=== PATIENT | male | born 1930 | race Caucasian/White ===

== ENCOUNTER 2017-03-22 09:42 | Inpatient (IN) | payer MEDICARE ==
[2017-03-21 12:41] VITALS: BMI 31.1
[2017-03-22 11:14] LABS: INR 1.2; PROTHROMBIN TIME 13.9 SECONDS (9.7-12.2)
[2017-03-22] MEDS ORDERED: Ciprofloxacin 400mg/200ml D5W 400 MG/200 ML BAG IVPB ONE ×2 (11:51→23:00)
[2017-03-22] MEDS ORDERED: Lidocaine 2% Jelly (Uro-Jet) ONE (11:52)
[2017-03-22] MEDS ORDERED: Sodium Chloride 0.9% 1,000 ML IV ONE (11:55)
[2017-03-22] MEDS ORDERED: Lidocaine Hydrochloride 5 ML INJ ONE (12:04)
[2017-03-22] MEDS ORDERED: Propofol 10 mg/ml Inj (20 ML) ONE ×2 (12:05→12:06)
[2017-03-22] MEDS ORDERED: Bacitracin Ointment 30 GM TUBE ONE (13:21)
--- NOTE | 2017-03-22 13:49 | PCM.SURG1 ---
Surgeon's Initial Post Op Note - Surgeon's Notes Surgeon: hellen Stain Dipper: none Type of Anesthesia: General IV Anesthesia Administered By: camilo Pre-Operative Diagnosis: bph acute urinary retention meatal stenosis Operative Findings: meatal stenosis residual prostate tissue. Post-Operative Diagnosis: meatal stenosis bph. Operation Performed: meatotomy.urethral dilatation cystoscopy tur prostate ( residual tissue) Specimen/Specimens Removed: prostate tissue. Estimated Blood Loss: EBL {In ML}: 5 Blood Products Given: N/A Drains Used: No Drains Post-Op Condition: Good Date of Surgery/Procedure: 03/22/17 Time of Surgery/Procedure: 13:53
[2017-03-22] MEDS ORDERED: Oxycodone/Acetaminophen 5/325 mg Tab PO PRN (14:30)
[2017-03-22] MEDS: Dextrose 5%/0.45% NS 1,000 ML IV SCH (16:35)
[2017-03-22 18:23] VITALS: RESP 20
[2017-03-22] MEDS: Ciprofloxacin 400mg/200ml D5W 400 MG/200 ML BAG IVPB SCH (22:39)
[2017-03-23 07:40] LABS: HEMOGLOBIN 12.9 g/dL (12.0-18.0); MEAN CELL VOLUME 91.3 fL (80.0-94.0); MEAN CORPUSCULAR HEMOGLOBIN 31.4 pg (27.0-31.0); MEAN CORPUSCULAR HGB CONC 34.4 g/dL (33.0-37.0); MEAN PLATELET VOLUME 8.9 fL (7.2-11.7); RBC 4.11 Mil/uL (4.40-5.90); WHITE BLOOD COUNT 7.4 K/uL (4.8-10.8)
[2017-03-23] MEDS: Dextrose 5%/0.45% NS 1,000 ML IV SCH (07:45)
[2017-03-23 07:47] LABS: BLOOD UREA NITROGEN 13 mg/dL (9-20); GFR AFRICAN-AMERICAN > 60; GFR NON-AFRICAN AMERICAN > 60
[2017-03-23 08:38] VITALS: BP 154/85; PULSE 104; TEMP 97.6; O2SAT 98
[2017-03-23] MEDS: Ciprofloxacin 400mg/200ml D5W 400 MG/200 ML BAG IVPB SCH (09:33)
[2017-03-23] MEDS ORDERED: Potassium Chloride 10 mEq ER Tab PO SCH (10:00)
[2017-03-23] MEDS ORDERED: Potassium Chloride 20 mEq ER Tab PO ONE (10:00)
[2017-03-23] MEDS ORDERED: Metoprolol Succinate 50 mg XL Tab PO SCH (10:00)
[2017-03-23] MEDS ORDERED: Digoxin 125 mcg (0.125 mg) Tab PO SCH (18:00)
--- NOTE | 2017-03-24 00:48 | OP ---
PROCEDURE DATE: 03/22/2017 PREOPERATIVE DIAGNOSES: Acute urinary retention, benign prostatic hypertrophy, meatal stenosis. POSTOPERATIVE DIAGNOSES: Acute urinary retention, benign prostatic hypertrophy, meatal stenosis. OPERATION: Meatotomy, urethral dilatation till #28, cystoscopy, and transurethral resection of the prostate gland residual tissue. SURGEON: Jhon Lang MD GROSS FINDINGS: Good bladder capacity. No tumors or stone were observed during emptying and filling of the bladder, ureteral orifices normally placed and in configuration, mild trabeculated bladder, residual prostate tissue was noted bilaterally, also fibrosis of the meatal stenosis and also slight fibrosis of the membranous urethra, pendulous urethra normal. TECHNIQUE: This patient was placed in lithotomy position. The external genitalia was prepped and draped in the usual sterile fashion. Using a straight clamp which was applied to the meatus at 6 o'clock. After this was accomplished, the posterior lip of the meatus was incised. Some bleeding was suddenly fulgurated. Then, the urethra was dilated to #28 Hunter sounds. After this was accomplished, a #17 panendoscope was introduced in the bladder under direct vision. Findings as above. The cystoscope was removed and a #26 resectoscope was introduced in the bladder, the resection was started from the bladder neck and prostate tissue was removed bilaterally, right lobe and left lateral lobe. The bladder was thoroughly fulgurated. The tissue was removed with Yanick syringe. After the procedure was terminated, a #22 three-way Jacobo was left indwelling to be connected to a continuous bladder irrigation with normal saline. The patient withstood the procedure well and returned to recovery room in satisfactory condition. Jhon Lang MD
[2017-03-29] MEDS ORDERED: Ergocalciferol 50,000 Intl Units Cap PO SCH (10:00)
== END 2017-03-23 13:12 | disposition home or self-care (01) | DRG 714 ==
LOC: C.9S 09:42 → C.6T 15:01
PROVIDERS: ADMIT Urology; ATTEND Urology
PROC: 0VT08ZZ Resection of Prostate, Via Natural or Artificial Opening Endoscopic (ICD-10-PCS; principal; 2017-03-22 13:00)
PROC: 0T7D8ZZ Dilation of Urethra, Via Natural or Artificial Opening Endoscopic (ICD-10-PCS; 2017-03-22 13:00)
DX: N40.1 Benign prostatic hyperplasia with lower urinary tract symptoms (principal); N35.8 Other urethral stricture; N42.1 Congestion and hemorrhage of prostate; R33.8 Other retention of urine

== ENCOUNTER 2017-09-27 09:56 | Day surgery (SDC) | payer MEDICARE ==
[2017-03-21 12:41] VITALS: BMI 31.1
[2017-09-27] MEDS ORDERED: Iohexol 240 200 ML ONE (10:45)
[2017-09-27] MEDS ORDERED: Ciprofloxacin 400mg/200ml D5W 0 MG/0 ML BAG IVPB ONE (10:45)
[2017-09-27] MEDS ORDERED: Gentamicin 80 mg in 0.9% NS 80 MG/100 ML BAG IVPB ONE (11:11)
[2017-09-27 11:12] LABS: INR 1.2; PROTHROMBIN TIME 13.6 SECONDS (9.7-12.2)
[2017-09-27] MEDS ORDERED: Lactated Ringer's 1,000 ML IV SCH (13:00)
--- NOTE | 2017-09-27 13:04 | PCM.SURG1 ---
Surgeon's Initial Post Op Note - Surgeon's Notes Surgeon: hellen Guzzler Builder: none Type of Anesthesia: General IV Anesthesia Administered By: Nupur Pre-Operative Diagnosis: urethral stricture Operative Findings: menbranous urethral stricture. Post-Operative Diagnosis: menbranous urethral stricture. Operation Performed: urethrogram.urethro-cystoscopy.prostate ultrasound biopsies. Specimen/Specimens Removed: prostate tissue. Estimated Blood Loss: EBL {In ML}: 5 Blood Products Given: N/A Drains Used: No Drains Post-Op Condition: Good Date of Surgery/Procedure: 09/27/17 Time of Surgery/Procedure: 13:08
[2017-09-27] MEDS ORDERED: HYDROmorphone 0.5 mg/0.5 ml ISec IVP PRN (13:11)
[2017-09-27 15:22] VITALS: BP 154/74; PULSE 62; RESP 20; TEMP 97.8; O2SAT 98
--- NOTE | 2017-09-28 10:19 | RAD ---
Date of service: 09/27/2017 PROCEDURE: Intraoperative Fluoroscopy. HISTORY: URETHERAL STRICTURE FINDINGS: Fluoroscopic assistance was provided. Fluoroscopy time = 47.1 seconds. Radiation dose = 0.10381 mGy. Please refer to the operative report for additional details.
--- NOTE | 2017-09-29 22:46 | OP ---
Copied To: Jhon Lang MD Attending MD: Jhon Lang Md PROCEDURE DATE: 09/27/2017 PREOPERATIVE DIAGNOSES: Urethral stricture, benign prostatic hyperplasia. POSTOPERATIVE DIAGNOSES: Benign prostatic hyperplasia, membranous urethral stricture . PROCEDURE: Urethrogram, urethrocystoscopy, prostate ultrasound biopsy. SURGEON: Jhon Lang MD GROSS FINDINGS: Membranous urethral stricture. No tumors or stone in the bladder. Apical prostate tissue present with moderate inflammation of the prostate gland. TECHNIQUE: This patient was placed in supine position. External genitalia were prepped and draped in the usual sterile fashion. In position, a #16 Jacobo was passed into the anterior urethra. 5 mL of water was placed in the balloon, and after this, dye was injected into the urethra under fluoroscopic control show the membranous urethral stricture. After this was accomplished, the patient was placed in lithotomy position. The external genitalia were prepped and draped again in the usual sterile fashion. Using a #35 wire, it was passed into the bladder under fluoroscopic control. A #16 panendoscope was passed into the bladder with moderate difficulties alongside the wire. No tumor or stones in the bladder. Apical tissue was present. We tried to dilate the urethra without success. Then, we removed the 17 scope, left the wire in bladder. Then, continued with under ultrasound prostate biopsy. We made four passes in the right lobe of the prostate gland and four passes in the left lateral lobe where the biopsy needed. Some bleeding was present during the procedure. After this accomplished, we tried to pass a #18 without success. Then, we tried a #16 with very much difficulties under fluoroscopic control over the wire. We passed a #16 [place] catheter. The Jacobo catheter was placed, was left in the bladder to be connected to gravity drainage. The procedure was terminated. The patient returned to recovery room in a satisfactory condition. Jhon Lang MD
== END 2017-09-27 14:15 | disposition home or self-care (01) ==
LOC: C.SDS 09:56
PROVIDERS: ATTEND Urology
DX: C61 Malignant neoplasm of prostate (principal); N35.9 Urethral stricture, unspecified
CPT/HCPCS: 36415; 55700; 76872; 85610; 85730; 88305; 88342; C1769; J1580

== ENCOUNTER 2017-12-04 09:25 | Day surgery (SDC) | payer MEDICARE ==
[2017-12-04 09:46] VITALS: BMI 27.4
[2017-12-04 10:22] LABS: INR 1.2; PROTHROMBIN TIME 13.2 SECONDS (9.7-12.2)
[2017-12-04] MEDS ORDERED: Ciprofloxacin 400mg/200ml D5W 400 MG/200 ML BAG IVPB ONE (10:59)
[2017-12-04] MEDS ORDERED: Lidocaine 2% Jelly (Uro-Jet) ONE ×2 (11:00→12:08)
[2017-12-04] MEDS ORDERED: Propofol 10 mg/ml Inj (20 ML) ONE ×2 (11:33→12:10)
[2017-12-04] MEDS ORDERED: Iohexol 240 (50 ml) ONE (12:12)
--- NOTE | 2017-12-04 12:33 | PCM.SURG1 ---
Surgeon's Initial Post Op Note - Surgeon's Notes Surgeon: hellen Interior Design Instructor: none Type of Anesthesia: IV Sedation Anesthesia Administered By: Pre-Operative Diagnosis: urethral stricture (membranous).adenocaprostate gland Operative Findings: urethral stricture. Post-Operative Diagnosis: urethral stricture. Operation Performed: cystoscopy.urethral dilatation (amplax dilators #26 Specimen/Specimens Removed: urine c/s Estimated Blood Loss: EBL {In ML}: 0 Blood Products Given: N/A Drains Used: No Drains Post-Op Condition: Good Date of Surgery/Procedure: 12/04/17 Time of Surgery/Procedure: 12:37
[2017-12-04 13:42] VITALS: RESP 16
[2017-12-04 15:45] VITALS: BP 160/77; PULSE 60; TEMP 97.9; O2SAT 99
--- NOTE | 2017-12-05 01:37 | OP ---
PROCEDURE DATE: 12/04/2017 PREOPERATIVE DIAGNOSES: Membranous urethral stricture, adenocarcinoma of the prostate gland. POSTOPERATIVE DIAGNOSES: Membranous urethral stricture, adenocarcinoma of the prostate gland. SURGEON: Jhon Lang MD GROSS FINDINGS: Good bladder capacity. Moderate trabeculated bladder. No tumors or stones were observed in the bladder. Inflammation of the posterior bladder wall. Bladder neck edema. Membranous urethral stricture present. Bulbous and pendulous urethra normal. TECHNIQUE: This patient was placed in the lithotomy position. The external genitalia was prepped and draped in the usual sterile fashion. Using a #0.35 guidewire which was passed into the bladder, the Jacobo catheter was removed over the guidewire. Amplatz dilator was passed until 26-Estonian with some difficulties. After this was accomplished, a #22 panendoscope was introduced into the bladder. Findings as above. The cystoscope was removed, and the wire was still remaining in the bladder, and #24 Estonian was passed off the wire into the bladder under fluoroscopic control. Good position of the Jacobo was obtained. The catheter drainage was clear. The patient withstood the procedure well and returned to recovery room in satisfactory condition. Jhon Lang MD
--- NOTE | 2017-12-05 09:41 | RAD ---
Date of service: 12/04/2017 PROCEDURE: Intraoperative Fluoroscopy. HISTORY: URETHRAL STRICTURE FINDINGS: Fluoroscopic assistance was provided. Fluoroscopy time = 15.8 sec. Radiation dose = 0.96310 mGy-cm Please refer to the operative report from STANLEY Murphy.
--- NOTE | 2017-12-05 11:17 | CARD ---
APPROVED REPORT Date of service: 12/04/2017 EKG Measurement Heart [id number] <Conclusion> Ventricular-paced rhythm Abnormal ECG
== END 2017-12-04 14:35 | disposition home or self-care (01) ==
LOC: C.SDS 09:25
PROVIDERS: ATTEND Urology
DX: R33.8 Other retention of urine (principal); Z85.46 Personal history of malignant neoplasm of prostate; N99.114 Postprocedural urethral stricture, male, unspecified; C61 Malignant neoplasm of prostate; N35.919 Unspecified urethral stricture, male, unspecified site
CPT/HCPCS: 36415; 52281; 85610; 85730; 87086; J0744; Q9966

== ENCOUNTER 2018-05-17 15:45 | Emergency (ER) | payer MEDICARE ==
[2018-05-17 16:54] LABS: BASO # 0.1 K/uL (0.0-0.2); BASO % 0.7 % (0.0-2.0); EOS % 0.1 % (0.0-4.0); HEMOGLOBIN 13.6 g/dL (12.0-18.0); LYMPH # 1.4 K/uL (1.0-4.3); MEAN CORPUSCULAR HEMOGLOBIN 32.1 pg (27.0-31.0); MEAN CORPUSCULAR HGB CONC 34.9 g/dL (33.0-37.0); MEAN PLATELET VOLUME 8.3 fL (7.2-11.7); MONO % 10.1 % (0.0-10.0); NEUT # 7.7 K/uL (1.8-7.0); NEUT % 75.1 % (50.0-75.0); RBC 4.23 Mil/uL (4.40-5.90); RED CELL DISTRIBUTION WIDTH 13.4 % (11.5-14.5); WHITE BLOOD COUNT 10.3 K/uL (4.8-10.8)
[2018-05-17 16:59] VITALS: BMI 27.4
[2018-05-17 17:03] VITALS: RESP 20
[2018-05-17 17:11] LABS: INR 3.7; PROTHROMBIN TIME 40.3 SECONDS (9.7-12.2)
--- NOTE | 2018-05-17 17:23 | C.PDOC ---
History Of Present Illness Patient is a 88 year old male, with a PMHx of urethral stricture, who presents to the ED after being sent in from his urologist 's office due to urinary retention. Patient states that he has been unable to urinate since yes terday and reports lower abdominal pain and distension. Patient reports that attempted urinary catheter insertion 5 times without success. He denies any fever, CP, or vomiting. Time Seen by Provider: 05/17/18 15:46 Chief Complaint (Nursing): Male Genitourinary History Per: Patient History/Exam Limitations: no limitations Onset/Duration Of Symptoms: Days (1) Current Symptoms Are (Timing): Still Present Associated Symptoms: Urinary Symptoms (urinary retention), Other (abdominal pain and distention) Recent travel outside of the [place]: No Additional History Per: Patient Past Medical History Reviewed: Historical Data, Nursing Documentation, Vital Signs Vital Signs: Last Vital Signs Temp 99.1 F 05/17/18 17:00 Pulse 102 H 05/17/18 17:00 Resp 20 05/17/18 17:00 BP 151/69 H 05/17/18 17:00 Pulse Ox 96 05/17/18 17:00 - Medical History PMH: Arthritis, Cardia Arrhythmia (afib), COPD, HTN, Hypercholesterolemia Denies: Diabetes, Chronic Kidney Disease Surgical History: Pacemaker - [facility] Procedures DILATION OF URETHRA, ENDO (03/22/17) RESECTION OF PROSTATE, ENDO (03/22/17) Family History: States: Unknown Family Hx - Social History Hx Alcohol Use: No Hx Substance Use: No Review Of Systems Except As Marked, All Systems Reviewed And Found Negative. Constitutional: Negative for: Fever Cardiovascular: Negative for: Chest Pain Physical Exam - Physical Exam Gastrointestinal/Abdominal: Tenderness (lower abdomen), Distention (lower abdomen) Additional Physical Exam Comments: Constitutional: No acute distress. Head: Normocephalic. Atraumatic. Eyes: PERRL. ENT: Moist mucous membranes. Neck: Supple. Cardiovascular: Regular rate. Radial pulse 2+ bilaterally. Chest: No tenderness. Respiratory: Clear to auscultation bilaterally. GI: Soft. Back: No CVA tenderness. Musculoskeletal: No tenderness or swelling of extremities. Skin: No rash. Neurologic: Alert, no focal deficit. ED Course And Treatment - Laboratory Results Result Diagrams: 05/17/18 16:48 04/12/19 16:48 Lab Results: PT 40.3 SECONDS (9.7-12.2) H 05/17/18 16:48 INR 3.7 H* 05/17/18 16:48 APTT 47 SECONDS (21-34) H 05/17/18 16:48 O2 Sat by Pulse Oximetry: 96 (on RA) Pulse Ox Interpretation: Normal Medical Decision Making Medical Decision Making: Plan: EKG Labs Discussed with via phone. Will place catheter in ED. Dr. Lang successfully placed catheter. States patient has antibiotic Cipro at home to take and will see patient in his office tomorrow morning. Disposition - Disposition Referrals: Jhon Lang Sr., MD [Staff Provider] - Disposition: HOME/ ROUTINE Disposition Time: 18:43 Condition: GOOD Instructions: Urinary Retention Forms: [facility] [employer] [facility] (Vietnamese) - Clinical Impression Clinical Impression: Urinary retention - Scribe Statement The provider has reviewed the documentation as recorded by the Sidneyiblorrie Quintero All medical record entries made by the Scribe were at my direction and personally dictated by me. I have reviewed the chart and agree that the record accurately reflects my personal performance of the history, physical exam, medical decision making, and the department course for this patient. I have also personally directed, reviewed, and agree with the discharge instructions and disposition.
[2018-05-17 17:31] LABS: ALB/GLOB RATIO 1.5 (1.0-2.1); ALBUMIN 4.3 g/dL (3.5-5.0); CALCIUM 9.9 mg/dl (8.6-10.4)
[2018-05-17] MEDS ORDERED: Lidocaine 2% Jelly (Uro-Jet) ONE (18:07)
[2018-05-17 19:00] VITALS: BP 160/91; PULSE 88; TEMP 98.3; O2SAT 99
--- NOTE | 2018-05-19 14:22 | PN ---
DATE: 05/17/2018 EMERGENCY ROOM PROGRESS NOTE. LOCATION: [facility]. The patient admitted to the emergency room with acute urinary retention. The external genitalia was prepped and draped in the usual sterile fashion. A #5 filiform was passed into the bladder. Then, the urethra was dilated with a #22 Follower. Large amount of urine was obtained. Then, an #18, 5-mL Jacobo was passed with mild difficulties because of the stricture in the membranous urethral area. The patient is to be discharged with a Jacobo leg bag and will follow in my office within 24 hours. The patient has Cipro at home and was instructed to take one tablet every 12 hours, also was advised to take temperature twice a day in case of temperature elevation. Jhon Lang MD
--- NOTE | 2018-05-21 15:32 | CARD ---
APPROVED REPORT Date of service: 05/17/2018 EKG Measurement Heart [id number] <Conclusion> Atrial fibrillation with occasional ventricular-paced complexes T wave abnormality, consider inferolateral ischemia Abnormal ECG
== END 2018-05-17 19:00 | disposition home or self-care (01) ==
LOC: C.ER 15:45
DX: R33.9 Retention of urine, unspecified (principal)

== ENCOUNTER 2018-06-28 10:18 | Outpatient (CLI) | payer MEDICARE | END 2018-06-28 10:19 | disposition home or self-care (01) | LOC: C.PAT 10:18 | DX: C61 Malignant neoplasm of prostate (principal) ==